=== PATIENT | male | born 1960 | race Caucasian/White ===

== ENCOUNTER → 2019-06-18 | Outpatient (CLI) | payer BC ==
[~2019-06-18] MED LIST: AMLODIPINE BESY10 MG PO; METOPROLOL TART50 MG PO
--- NOTE | 2019-06-18 16:31 | Diagnostic Imaging Report ---
Exam: Testicular ultrasound Penile ultrasound Clinical History: <> Findings: Sonographic evaluation of the testicles and penis was performed. Both testes are normal in echogenicity and size without intratesticular mass. Normal bilateral testicular blood flow without evidence of torsion. Right: The right testicle measures 4.5 x 2.6 x 3.1 cm and appears unremarkable. The right epididymis measures 1.0 x 0.7 x 0.8 cm and appears unremarkable. Small right hydrocele. No varicocele. Left: The left testicle measures 4.5 x 2.6 x 3.3 cm and appears unremarkable. The left epididymis measures 1.0 x 1.2 x 1.4 cm and contains a 7 x 4 x 8 mm spermatocele. Small left hydrocele. No varicocele. Penis: Normal sonographic appearance without significant calcified plaque associated with the tunica albuginea. Impression: 1. Unremarkable testicles. 2. No sonographic evidence of calcified plaque of the tunica albuginea. 3. Small bilateral hydroceles 4. Small left spermatocele. Signed by: Mely Tomlinson MD on 06/18/2019 4:27 PM
== END ==
LOC: US 13:19
PROVIDERS: ATTEND Urology
DX: N48.6 Induration penis plastica (principal); N43.3 Hydrocele, unspecified; N43.41 Spermatocele of epididymis, single
CPT/HCPCS: 76870; 76882; 93976

== ENCOUNTER 2019-11-11 06:46 | Observation (INO) | payer OTHER ==
[2019-11-07 13:50] LABS: BASOPHILS # (AUTO) 0.1 (0.0-0.1); BASOPHILS % 0.7 % (0.0-1.0); EOSINOPHILS # (AUTO) 0.2 (0.0-0.4); EOSINOPHILS % 2.3 % (0.0-6.0); HEMOGLOBIN 14.7 g/dL (14.0-18.0); LYMPHOCYTES # (AUTO) 1.4 (1.0-3.2); LYMPHOCYTES % 19.3 % (18.0-39.1); MEAN CORPUSCULAR HEMOGLOBIN 28.1 pg (28-32); MEAN CORPUSCULAR HGB CONC 32.7 g/dL (31-35); MONOCYTES # (AUTO) 0.7 (0.2-0.8); MONOCYTES % 9.8 % (4.4-11.3); NEUTROPHILS # (AUTO) 4.9 (2.1-6.9); NEUTROPHILS % 67.5 % (38.7-80.0); PLATELET COUNT 268 x10e3/uL (140-360); RED BLOOD COUNT 5.23 x10e6/uL (4.3-5.7); RED CELL DISTRIBUTION WIDTH 13.2 % (11.7-14.4)
[~2019-11-11] VITALS: Ht 170.2 cm; Wt 105.7 kg
[2019-11-11] MEDS ORDERED: VANCOMYCIN HCL 1,000 MG ONE (07:27)
[2019-11-11] MEDS ORDERED: SODIUM CHLORIDE 0.9% 500ML 500 ML ONE (07:27)
[2019-11-11] MEDS ORDERED: TRANEXAMIC ACID 1,000 MG/10 ML ML ONE (07:28)
[2019-11-11] MEDS ORDERED: VANCOMYCIN HCL 500 MG ONE (07:36)
[2019-11-11] MEDS ORDERED: CELECOXIB 200 MG CAP ONE (07:51)
[2019-11-11] MEDS ORDERED: DEXAMETHASONE SOD PHOS INJ 4 MG/ML VIAL ONE (07:51)
[2019-11-11] MEDS ORDERED: GABAPENTIN 300 MG CAP ONE (07:52)
[2019-11-11] MEDS ORDERED: CEFAZOLIN SOD 1 GM/NS 50ML 100 ML IV ONE (07:53)
[2019-11-11] MEDS ORDERED: ROPIVACAINE 246.25 MG, EPINEPHRINE HCL 1:1000 1ML 0.5 MG, CLONIDINE HCL 0.08 MG, KETORO... INJ ONE ×5 (08:00)
[2019-11-11] MEDS ORDERED: BUPIVACAINE 7.5MG/ML /DEXTROSE 82.5MG/ML 2 ML AMP INJ ONE (08:56)
[2019-11-11] MEDS ORDERED: HYDROCODONE/APAP 5MG-325MG TAB PO PRN (10:45)
[2019-11-11] MEDS ORDERED: SODIUM CHLORIDE 0.9% 1000ML 1,000 ML IV SCH (10:45)
[2019-11-11] MEDS ORDERED: ONDANSETRON HCL INJ 2MG/ML 2ML 2 MG/ML VIAL IV PRN (10:45)
[2019-11-11] MEDS ORDERED: DIPHENHYDRAMINE HCL INJ 50 MG/ML VIAL IV PRN (10:45)
[2019-11-11] MEDS ORDERED: ACETAMINOPHEN 650 MG SUPP PR PRN (10:45)
[2019-11-11] MEDS ORDERED: DOCUSATE SODIUM 100 MG CAP PO PRN (10:45)
[2019-11-11] MEDS ORDERED: KETOROLAC TROMETHAMINE 30 MG/ML VIAL IV PRN (10:45)
[2019-11-11] MEDS: HYDROMORPHONE 1MG/1ML INJ ONE ×4 (11:06→11:37)
[2019-11-11] MEDS: FENTANYL CITRATE/PF 100MCG/2 ML INJ ONE ×2 (11:46→12:31)
[2019-11-11] MEDS ORDERED: LIDOCAINE HCL 2% LOCAL INJ 5 ML SDV VIAL INJ ONE (12:08)
[2019-11-11] MEDS ORDERED: SEVOFLURANE INHAL SOLN 250 ML PEN BTL ONE (12:08)
[2019-11-11] MEDS ORDERED: PROPOFOL IV EMULSION 10 MG/ML 20 ML VIAL ONE (12:08)
[2019-11-11] MEDS ORDERED: ONDANSETRON HCL INJ 2MG/ML 2ML 2 MG/ML VIAL ONE (12:08)
[2019-11-11] MEDS: HYDROCODONE/APAP 7.5MG-325MG 1 EA TAB PO PRN ×3 (12:09→19:40)
[2019-11-11 12:55] VITALS: BP 131/84
[2019-11-11] MEDS ORDERED: FENTANYL CITRATE/PF 100MCG/2 ML INJ ONE (13:26)
[2019-11-11] MEDS ORDERED: MIDAZOLAM HCL 2 MG/2 ML VIAL ONE (13:26)
[2019-11-11 13:47] VITALS: BP 131/84
[2019-11-11] MEDS ORDERED: SODIUM CHLORIDE 0.9% 50ML 50 ML ONE (15:12)
[2019-11-11] MEDS ORDERED: GABAPENTIN100 MG PO (15:37)
[2019-11-11] MEDS: CELECOXIB 200 MG CAP PO SCH (15:39)
[2019-11-11] MEDS: CEFAZOLIN SOD 1 GM/NS 50ML 50 ML IV SCH (15:39)
[2019-11-11 15:41] VITALS: BP 131/72
[2019-11-11 20:00] VITALS: BP_SYST 131; BP_SYST 132; BP_DIAS 72; BP_DIAS 85
[2019-11-11] MEDS: ASPIRIN 325 MG TAB PO SCH (20:00)
[2019-11-11] MEDS ORDERED: ZOLPIDEM TARTRATE 5 MG TAB PO PRN (21:00)
[2019-11-12] VITALS: BP 118/76
[2019-11-12] MEDS: CEFAZOLIN SOD 1 GM/NS 50ML 50 ML IV SCH ×2 (00:14→08:03)
[2019-11-12] MEDS ORDERED: SODIUM CHLORIDE 0.9% 250ML 250 ML ONE (01:24)
[2019-11-12] MEDS: HYDROCODONE/APAP 7.5MG-325MG 1 EA TAB PO PRN ×2 (01:28→08:09)
[2019-11-12 04:00] VITALS: BP 140/79
[2019-11-12 05:57] LABS: HEMATOCRIT 39.6 % (38.2-49.6); HEMOGLOBIN 12.5 g/dL (14.0-18.0)
[2019-11-12] MEDS: CELECOXIB 200 MG CAP PO SCH (08:03)
[2019-11-12] MEDS: ASPIRIN 325 MG TAB PO SCH (08:03)
[2019-11-12 08:54] VITALS: BP 145/77
[2019-11-12 09:00] VITALS: BP 145/77
[2019-11-12] MEDS ORDERED: ONDANSETRON HCL 4 MG ORAL DISINTEGRATING TAB PO PRN (09:30)
[2019-11-12] MEDS ORDERED: ACETAMINOPHEN 1000 MG/100 ML IV PRN (10:45)
== END 2019-11-12 12:16 | disposition home or self-care (01) ==
LOC: OR 06:46 → PACU V 10:36 → MED/SURG 13:00
PROVIDERS: ADMIT Specialist; ATTEND Specialist
DX: M16.12 Unilateral primary osteoarthritis, left hip (principal); I10 Essential (primary) hypertension; G47.33 Obstructive sleep apnea (adult) (pediatric); Z87.891 Personal history of nicotine dependence; Z11.59 Encounter for screening for other viral diseases; Z01.812 Encounter for preprocedural laboratory examination; Z01.818 Encounter for other preprocedural examination
CPT/HCPCS: 36415; 71046; 72170; 85014; 85018; 85025; 86850; 86900; 86920; C1713; C1776; G0378; J0171; J0690; J1100; J1170; J1885; J2001; J2250; J2405; J2795; J3010; J3370; J7040; J7050; U0002